=== PATIENT | male | born 1965 | race Caucasian/White ===

== ENCOUNTER 2016-11-02 01:34 | Emergency (ER) | payer SELFPAY ==
[2016-11-02 01:35] VITALS: BMI 34.9
[2016-11-02 01:54] VITALS: BP 137/91; PULSE 70; TEMP 97.8
[2016-11-02 02:16] LABS: ALL NEG? YES; LEUKOCYTES/URINE NEG (NEGATIVE); MDMA* NEG (NEGATIVE); METHAMPHETAMINES NEG (NEGATIVE); NITRITE/URINE NEG (NEGATIVE); OXYCODONE NEG (NEGATIVE); URINE OCCULT BLOOD NEG (NEG/TRACE)
[2016-11-02 02:20] LABS: AUTOMATED BASOPHIL 1.1 % (0-2); AUTOMATED EOSINOPHIL 1.5 % (0-5); AUTOMATED LYMPH 29.1 % (17-44); AUTOMATED MONOCYTE 9.5 % (3-10); AUTOMATED NEUTROPHIL 58.8 % (45-76); MPV 7.3 fL (7.4-10.4)
[2016-11-02 02:22] LABS: RBC/URINE 0-2 (0-2); WBC/URINE 0-2 (0-2)
[2016-11-02 02:26] LABS: BLOOD UREA NITROGEN 11 MG/DL (9-20); CALCIUM 8.7 MG/DL (8.4-10.2); CALCULATED OSMOLALITY 274 MOs/Kg (270-290); CHLORIDE 104 mEq/L (98-107); ETOH-MGDL 283 mg/dL; GLUCOSE 177 MG/DL (70-99); SODIUM LEVEL 141 mEq/L (137-146); TOTAL PROTEIN 6.8 G/DL (6.3-8.2)
== END 2016-11-02 02:15 | disposition left against medical advice (07) ==
LOC: ED 01:34
DX: F10.10 Alcohol abuse, uncomplicated (principal)
CPT/HCPCS: 80053; 80307; 81001; 85025; 86592; 99281